=== PATIENT | male | born 1985 | race Caucasian/White ===

== ENCOUNTER 2022-12-11 19:37 | Inpatient (IN) | payer OTHER ==
[2022-12-11 21:17] VITALS: BMI 23.3
[2022-12-11] MEDS ORDERED: ACETAMINOPHEN 325 MG TABLET (FP) PO PRN (22:41)
[2022-12-11] MEDS ORDERED: POLYETHYLENE GLYCOL (HEALTHYLAX) 3350 17 GM PACKET PO PRN (22:41)
[2022-12-11] MEDS ORDERED: LOPERAMIDE HCL 2 MG CAPSULE PO PRN (22:41)
[2022-12-11] MEDS ORDERED: BENZONATATE 200 MG CAPSULE PO PRN (22:41)
[2022-12-11] MEDS ORDERED: MAG HYDROX/AL HYDROX/SIMETH 30 ML UNIT-DOSE CUP PO PRN (22:41)
[2022-12-11] MEDS ORDERED: guaiFENesin 600 MG TABLET.ER (FP) PO PRN (22:41)
[2022-12-11] MEDS ORDERED: IBUPROFEN 600 MG TABLET (FP) PO PRN (22:41)
[2022-12-11] MEDS ORDERED: BENZOCAINE/MENTHOL (CHLORASEPTIC ) LOZENGE MM PRN (22:41)
[2022-12-11] MEDS ORDERED: BISMUTH SUBSALICYLATE 524 MG/30 ML PO PRN (22:41)
[2022-12-11] MEDS ORDERED: DICYCLOMINE HCL 10 MG CAPSULE PO PRN (22:41)
[2022-12-11] MEDS ORDERED: NICOTINE POLACRILEX 2 MG GUM BUC PRN (22:41)
[2022-12-11] MEDS ORDERED: IBUPROFEN 400 MG TABLET (FP) PO PRN (22:41)
[2022-12-11] MEDS ORDERED: P-EPHED 60MG/TRIPROLIDI 2.5MG TABLET PO PRN (22:41)
[2022-12-11] MEDS ORDERED: ONDANSETRON *ODT* 4 MG TABLET SL PRN (22:41)
[2022-12-11] MEDS ORDERED: MAGNESIUM HYDROX 2400MG/30ML ORAL SUSPENSION 30 ML CUP PO PRN (22:41)
[2022-12-11] MEDS ORDERED: METHOCARBAMOL 500 MG TABLET ONE (23:03)
[2022-12-11] MEDS: METHOCARBAMOL 500 MG TABLET PO PRN (23:05)
[2022-12-12] MEDS: hydrOXYzine PAMOATE 25 MG CAPSULE (FP) PO PRN ×2 (00:43→22:11)
[2022-12-12] MEDS: PRENATAL VITAMINS W/ FOLIC ACID TABLET (FP) PO SCH (10:16)
[2022-12-12] MEDS: diazePAM 5 MG TABLET PO SCH ×3 (10:17→22:10)
[2022-12-12] MEDS: BACITRACIN 0.9 GM PACKET TP SCH ×2 (10:42→22:10)
[2022-12-12 11:57] LABS: HEMATOCRIT 42.4 % (35.4-49); HEMOGLOBIN 14.5 GM/dL (11.7-16.9); MCH 32.3 pg (25.7-33.7); MCHC 34.2 g/dl (32.0-35.9); MEAN CELL VOLUME 94.7 fl (80-96); MEAN PLT VOLUME 9.2 fl (7.5-11.1); PLATELET COUNT 212 10^3/uL (134-434); RBC 4.48 M/mm3 (4.00-5.60); RDW 13.1 % (11.9-15.9); WHITE BLOOD COUNT 8.8 K/mm3 (4.0-10.0)
[2022-12-12 12:08] LABS: CHLORIDE 105 mmol/L (98-107); POTASSIUM 3.6 mmol/L (3.5-5.1); SODIUM 135 mmol/L (136-145)
[2022-12-12 12:24] LABS: CALCIUM 9.2 mg/dL (8.5-10.1)
[2022-12-12 12:25] LABS: ALBUMIN 3.7 g/dl (3.4-5.0); ANION GAP 0 mmol/L (4-13); BLOOD UREA NITROGEN 10.3 mg/dL (7-18); CO2 31 mmol/L (21-32); GLUCOSE,RANDOM 88 mg/dL (74-106)
[2022-12-12 12:28] LABS: CREATININE 0.9 mg/dL (0.55-1.3); SGOT/AST 41 U/L (15-37); SGPT/ALT 59 U/L (13-61)
[2022-12-12 12:30] LABS: BILIRUBIN,TOTAL 0.6 mg/dL (0.2-1)
[2022-12-12 12:31] LABS: ALK PHOS 84 U/L (45-117)
[2022-12-12] MEDS: MELATONIN 5 MG TABLETS PO SCH (22:10)
[2022-12-12] MEDS: THIAMINE HCL 100 MG TABLET (FP) PO SCH (22:10)
[2022-12-12] MEDS: METHOCARBAMOL 500 MG TABLET PO PRN (22:11)
[2022-12-13] MEDS: diazePAM 5 MG TABLET PO SCH ×3 (06:00→22:39)
[2022-12-13] MEDS: PRENATAL VITAMINS W/ FOLIC ACID TABLET (FP) PO SCH (09:27)
[2022-12-13] MEDS: BACITRACIN 0.9 GM PACKET TP SCH ×2 (09:29→22:40)
[2022-12-13] MEDS: METHOCARBAMOL 500 MG TABLET PO PRN ×2 (11:34→18:07)
[2022-12-13] MEDS ORDERED: ACETAMINOPHEN 325 MG TABLET (FP) PO PRN (11:43)
[2022-12-13] MEDS: LIDOCAINE 5% TOPICAL PATCH TP SCH (19:36)
[2022-12-13] MEDS: THIAMINE HCL 100 MG TABLET (FP) PO SCH (22:40)
[2022-12-13] MEDS: LIDOCAINE PATCH REMOVAL MC SCH (22:40)
[2022-12-13] MEDS: MELATONIN 5 MG TABLETS PO SCH (22:40)
[2022-12-14] MEDS: diazePAM 5 MG TABLET PO SCH ×2 (05:53→17:35)
[2022-12-14] MEDS: LIDOCAINE 5% TOPICAL PATCH TP SCH (10:50)
[2022-12-14] MEDS: PRENATAL VITAMINS W/ FOLIC ACID TABLET (FP) PO SCH (10:50)
[2022-12-14] MEDS: BACITRACIN 0.9 GM PACKET TP SCH ×2 (10:50→22:24)
[2022-12-14] MEDS: hydrOXYzine PAMOATE 25 MG CAPSULE (FP) PO PRN ×2 (17:36→22:23)
[2022-12-14 22:14] VITALS: RESP 18
[2022-12-14] MEDS: MELATONIN 5 MG TABLETS PO SCH (22:23)
[2022-12-14] MEDS: THIAMINE HCL 100 MG TABLET (FP) PO SCH (22:24)
[2022-12-14] MEDS: LIDOCAINE PATCH REMOVAL MC SCH (22:24)
[2022-12-15] MEDS ORDERED: diazePAM 5 MG TABLET PO ONE (06:00)
[2022-12-15 09:41] VITALS: BP 116/52; PULSE 65; TEMP 97.5
[2022-12-15] MEDS: BACITRACIN 0.9 GM PACKET TP SCH (11:39)
[2022-12-15] MEDS: PRENATAL VITAMINS W/ FOLIC ACID TABLET (FP) PO SCH (11:40)
== END 2022-12-15 12:48 | disposition home or self-care (01) | DRG 774 ==
LOC: YASAS 19:37 → Y6N 22:49
PROVIDERS: ADMIT Allergy & Immunology; ATTEND Surgery
PROC: HZ2ZZZZ Detoxification Services for Substance Abuse Treatment (ICD-10-PCS; principal; 2022-12-11)
DX: F10.230 Alcohol dependence with withdrawal, uncomplicated (principal); F14.20 Cocaine dependence, uncomplicated; F17.210 Nicotine dependence, cigarettes, uncomplicated; F19.282 Other psychoactive substance dependence with psychoactive substance-induced sleep disorder; M25.512 Pain in left shoulder; M24.412 Recurrent dislocation, left shoulder; Z91.410 Personal history of adult physical and sexual abuse
CPT/HCPCS: 36415; 80053; 80307; 85027; 86780; 87635; 87811